=== PATIENT | male | born 1945 | race Two or more races ===

== ENCOUNTER 2018-06-20 13:04 | Emergency (ER) | payer OTHER ==
[~2018-06-20] VITALS: Ht 172.7 cm; Wt 81.6 kg
[2018-06-20 14:01] LABS: Hemoglobin 13.3 g/dL (13.5-17.5); Mean Corpuscular Hemoglobin 32.5 pg (28.0-32.0); Mean Corpuscular Hgb Conc. 33.2 g/dL (32.0-36.0); Mean Corpuscular Volume 97.8 fL (80.0-100.0); Platelet Count (auto) 150 10^3/uL (140-450); Red Blood Cells 4.09 10^6/uL (4.5-5.90); Red Cell Distribution Width 14.6 % (11.8-14.3); White Blood Cell 6.3 10^3/uL (4.4-10.8)
[2018-06-20 14:06] LABS: Band Neutrophils % (manual) 0; Basophils % (manual) 0 (0.0-2.0); Blast Cells 0; Eosinophils % (manual) 0 (0-7); Metamyelocytes % 0; Myelocytes % 0; Promyelocytes % 0; Reactive Lymphocytes 0
[2018-06-20 14:15] LABS: INR 1.12 (0.9-1.15); Partial Thromboplastin Time 26.4 sec (23.78-33.04); Prothrombin Time 11.9 sec (9.27-12.13)
[2018-06-20 14:26] LABS: Albumin 3.3 g/dL (3.4-5.0); BUN/Creatinine Ratio 9.9; Calcium 8.3 mg/dL (8.5-10.1); Potassium 3.8 mmol/L (3.5-5.1)
[2018-06-20 14:34] LABS: Bilirubin, Total 1.8 mg/dL (0.2-1.0); Total Protein 9.4 g/dL (6.4-8.2)
[2018-06-20 16:37] VITALS: BP 134/91
[2018-06-20 16:39] LABS: Lymphocytes % (manual) 7 (10.0-50.0)
[2018-06-20 16:40] LABS: Monocytes % (manual) 15 (0-12)
[2018-06-20] MEDS ORDERED: HYDROcodone-ACET 10/325MG TAB PO ONE (17:15)
[2018-06-20] MEDS ORDERED: ONDANSETRON ODT 4 MG TAB PO ONE (17:15)
[2018-06-20] MEDS ORDERED: MORPHINE SULFATE 4 MG/ML SYR/VIAL IM ONE (17:15)
== END 2018-06-20 17:50 | disposition home or self-care (01) ==
LOC: ER 13:04
DX: M17.11 Unilateral primary osteoarthritis, right knee (principal)
CPT/HCPCS: 36415; 73560; 80053; 85007; 85027; 85610; 85730; 93971; 96372; 99284; J2270; Q0162